=== PATIENT | male | born 1980 | race Two or more races ===

== ENCOUNTER 2021-03-02 22:08 | Inpatient (IN) ==
[2021-03-02] MEDS ORDERED: ONDANSETRON 4 MG/2 ML VIAL IV STA (22:26)
[2021-03-02] MEDS ORDERED: SODIUM CHLORIDE 0.9% 500 ML IV STA (22:26)
[2021-03-02] MEDS ORDERED: AZITHROMYCIN 250 MG TABLET PO STA (22:29)
[2021-03-02] MEDS ORDERED: DEXAMETHASONE 4 MG/1 ML VIAL IV STA (22:29)
[2021-03-02] MEDS ORDERED: DEXAMETHASONE 10 MG/1 ML VIAL ONE (23:01)
[2021-03-02 23:06] LABS: Basophils % 0.1 % (0.0-0.8); Hematocrit 43.7 VOL% (42.0-52.0); Hemoglobin 14.6 GM/DL (14.0-18.0); Immature Granulocytes % 0.8 %; Immature Granulocytes Absolute 0.06 #; Lymphocytes # 1.5 10*3/uL (1.4-4.0); Lymphocytes % 20.7 % (21.2-54.2); Mean Corpuscular HGB Conc 33.4 GM/DL (32-36); Mean Platelet Volume 9.5 FL (9.6-12.0); Monocytes % 7.2 % (1.7-12.7); Neutrophils % 71.2 % (38.7-73.9); Platelet Count 239 T/CUMM (130-400); Red Blood Count 5.14 MC/CUMM (3.8-5.5); Red Cell Distribution Width 12.5 % (9.3-17.3); White Blood Count 7.3 T/CUMM (4-12)
[2021-03-02 23:29] LABS: Albumin 3.2 G/DL (3.4-5.0); Bilirubin,Total 0.8 MG/DL (0.20-1.00); Calcium 7.8 MG/DL (8.5-10.1); Osmolality,Calculated 269.2 MOS/KG (273-304); Total Protein 7.1 G/DL (6.4-8.2)
[2021-03-03] MEDS ORDERED: hydrALAZINE 20 MG/1 ML VIAL IV PRN (02:32)
[2021-03-03] MEDS ORDERED: DEXTROSE 50% 25 GM/50 ML VIAL IV PRN (02:32)
[2021-03-03] MEDS ORDERED: GLUCAGON 1 MG VIAL IM PRN (02:32)
[2021-03-03] MEDS ORDERED: MELATONIN 3 MG TABLET PO PRN (02:32)
[2021-03-03] MEDS ORDERED: ONDANSETRON 4 MG/2 ML VIAL IV PRN (02:32)
[2021-03-03] MEDS ORDERED: SIMETHICONE CHEW 125 MG TABLET PO PRN (02:32)
[2021-03-03] MEDS ORDERED: guaiFENesin/CODEINE 5 ML LIQUID PO PRN (02:51)
[2021-03-03] MEDS ORDERED: IBUPROFEN 400 MG TABLET PO PRN (02:51)
[2021-03-03] MEDS ORDERED: BENZOCAINE/MENTHOL LOZENGE 18/BOX PO PRN (03:00)
[2021-03-03] MEDS: ENOXAPARIN 40 MG/0.4 ML SYRINGE SUBCUT SCH (03:42)
[2021-03-03] MEDS ORDERED: REMDESIVIR 200 MG in SODIUM CHLORIDE 0.9% 210 ML IV ONE (04:00)
[2021-03-03 04:04] LABS: Basophils % 0.2 % (0.0-0.8); Hematocrit 45.8 VOL% (42.0-52.0); Hemoglobin 15.1 GM/DL (14.0-18.0); Immature Granulocytes Absolute 0.06 #; Lymphocytes # 0.9 10*3/uL (1.4-4.0); Lymphocytes % 14.7 % (21.2-54.2); Mean Corpuscular Volume 85.8 FL (87-102); Mean Platelet Volume 9.4 FL (9.6-12.0); Monocytes % 4.5 % (1.7-12.7); Neutrophils % 79.6 % (38.7-73.9); Platelet Count 245 T/CUMM (130-400); Red Blood Count 5.34 MC/CUMM (3.8-5.5); Red Cell Distribution Width 12.6 % (9.3-17.3); White Blood Count 6.2 T/CUMM (4-12)
[2021-03-03 04:13] LABS: PT Patient Result 10.7 SECS (10.5-12.0)
[2021-03-03 04:38] LABS: Calcium 8.3 MG/DL (8.5-10.1); Osmolality,Calculated 270.4 MOS/KG (273-304); Potassium 4.1 MMOL/L (3.5-5.1); Risk Ratio 3.02; Thyroid Stimulating Hormone 0.213 uIU/ml (0.358-3.74); VLDL Cholesterol 40.2 MG/DL
[2021-03-03] MEDS: SODIUM CHLORIDE 0.9% 1,000 ML IV SCH ×3 (05:05→21:35)
[2021-03-03 05:11] LABS: Sedimentation Rate-Westergren 26 MM/HR (0-15)
[2021-03-03] MEDS ORDERED: CHOLECALCIFEROL 1,000 UNIT TABLET PO SCH (09:00)
[2021-03-03] MEDS ORDERED: DEXAMETHASONE 4 MG/1 ML VIAL IV SCH (09:00)
[2021-03-03] MEDS ORDERED: ZINC GLUCONATE 50 MG TABLET PO SCH (09:00)
[2021-03-03] MEDS: DOCUSATE SODIUM 100 MG CAPSULE PO SCH ×2 (09:18→21:35)
[2021-03-03] MEDS: BENZONATATE 100 MG CAPSULE PO SCH ×2 (09:19→21:34)
[2021-03-03] MEDS: PANTOPRAZOLE 40 MG TABLET PO SCH (09:19)
[2021-03-03] MEDS: ASCORBIC ACID 500 MG TABLET PO SCH ×2 (09:19→21:35)
[2021-03-03] MEDS ORDERED: AZITHROMYCIN 250 MG TABLET ONE (10:47)
[2021-03-03] MEDS: FAMOTIDINE 20 MG/2 ML VIAL IV SCH (17:36)
[2021-03-03] MEDS: IVERMECTIN 3 MG TABLET PO SCH (18:36)
[2021-03-03] MEDS: methylPREDNISolone SOD SUC 40 MG/1 ML VIAL IV SCH ×2 (18:36→23:54)
[2021-03-03 19:12] LABS: Hepatitis B Core IgM Quant 0.07 Index; Hepatitis B Surface Ag Quant < 0.10 Index; Hepatitis B Surface Ag Result Non-Reactive (NonReactive); Hepatitis C Virus Ab Quant 0.05 Index; Hepatitis C Virus Ab Result Non-Reactive (NonReactive)
[2021-03-03] MEDS: MELATONIN 3 MG TABLET PO SCH (21:34)
[2021-03-03] MEDS: CHOLECALCIFEROL 5,000 UNIT TABLET PO SCH (21:35)
[2021-03-04] MEDS: ENOXAPARIN 40 MG/0.4 ML SYRINGE SUBCUT SCH (03:23)
[2021-03-04 04:18] LABS: Basophils % 0.2 % (0.0-0.8); Hematocrit 45.9 VOL% (42.0-52.0); Hemoglobin 14.7 GM/DL (14.0-18.0); Immature Granulocytes % 0.6 %; Immature Granulocytes Absolute 0.04 #; Lymphocytes % 15.6 % (21.2-54.2); Mean Corpuscular Volume 88.3 FL (87-102); Mean Platelet Volume 9.6 FL (9.6-12.0); Monocytes % 5.6 % (1.7-12.7); Platelet Count 258 T/CUMM (130-400); Red Cell Distribution Width 12.7 % (9.3-17.3); White Blood Count 6.4 T/CUMM (4-12)
[2021-03-04 04:45] LABS: Albumin 2.6 G/DL (3.4-5.0); Bilirubin,Total 0.5 MG/DL (0.20-1.00); Calcium 8.1 MG/DL (8.5-10.1); Ferritin 4331.5 ng/mL (26-388); Osmolality,Calculated 276.2 MOS/KG (273-304); Total Protein 6.9 G/DL (6.4-8.2)
[2021-03-04] MEDS: SODIUM CHLORIDE 0.9% 1,000 ML IV SCH ×2 (05:42→15:16)
[2021-03-04] MEDS: FAMOTIDINE 20 MG/2 ML VIAL IV SCH ×2 (05:47→16:37)
[2021-03-04] MEDS: methylPREDNISolone SOD SUC 40 MG/1 ML VIAL IV SCH ×4 (05:50→23:55)
[2021-03-04] MEDS ORDERED: REMDESIVIR 100 MG in SODIUM CHLORIDE 0.9% 100 ML IV SCH (09:00)
[2021-03-04] MEDS: CHOLECALCIFEROL 5,000 UNIT TABLET PO SCH ×2 (09:15→21:23)
[2021-03-04] MEDS: PANTOPRAZOLE 40 MG TABLET PO SCH (09:15)
[2021-03-04] MEDS: ZINC GLUCONATE 50 MG TABLET PO SCH (09:15)
[2021-03-04] MEDS: DOCUSATE SODIUM 100 MG CAPSULE PO SCH ×2 (09:15→21:23)
[2021-03-04] MEDS: ASCORBIC ACID 500 MG TABLET PO SCH ×2 (09:15→21:23)
[2021-03-04] MEDS: BENZONATATE 100 MG CAPSULE PO SCH ×2 (09:15→21:23)
[2021-03-04] MEDS: AZITHROMYCIN 250 MG TABLET PO SCH (09:15)
[2021-03-04] MEDS: CETIRIZINE 10 MG TABLET PO SCH (09:15)
[2021-03-04] MEDS: IVERMECTIN 3 MG TABLET PO SCH (09:15)
[2021-03-04] MEDS: BARICITINIB 2 MG TABLET PO SCH (15:27)
[2021-03-04] MEDS: MELATONIN 3 MG TABLET PO SCH (21:23)
[2021-03-05] MEDS: SODIUM CHLORIDE 0.9% 1,000 ML IV SCH ×3 (00:02→13:34)
[2021-03-05] MEDS: ENOXAPARIN 40 MG/0.4 ML SYRINGE SUBCUT SCH ×2 (03:30→17:06)
[2021-03-05] MEDS: FAMOTIDINE 20 MG/2 ML VIAL IV SCH ×2 (05:46→17:07)
[2021-03-05] MEDS: methylPREDNISolone SOD SUC 40 MG/1 ML VIAL IV SCH ×4 (05:50→23:15)
[2021-03-05] MEDS: BENZONATATE 100 MG CAPSULE PO SCH ×2 (08:14→20:30)
[2021-03-05] MEDS: ZINC GLUCONATE 50 MG TABLET PO SCH (08:14)
[2021-03-05] MEDS: AZITHROMYCIN 250 MG TABLET PO SCH (08:15)
[2021-03-05] MEDS: ASCORBIC ACID 500 MG TABLET PO SCH ×2 (08:15→20:30)
[2021-03-05] MEDS: DOCUSATE SODIUM 100 MG CAPSULE PO SCH ×2 (08:15→20:30)
[2021-03-05] MEDS: PANTOPRAZOLE 40 MG TABLET PO SCH (08:15)
[2021-03-05] MEDS: CHOLECALCIFEROL 5,000 UNIT TABLET PO SCH ×2 (08:16→20:30)
[2021-03-05] MEDS: CETIRIZINE 10 MG TABLET PO SCH (08:16)
[2021-03-05] MEDS: BARICITINIB 2 MG TABLET PO SCH (10:33)
[2021-03-05] MEDS: IVERMECTIN 3 MG TABLET PO SCH (10:33)
[2021-03-05] MEDS ORDERED: FUROSEMIDE 40 MG/4 ML VIAL IV ONE (15:00)
[2021-03-05] MEDS: MELATONIN 3 MG TABLET PO SCH (20:30)
[2021-03-06 04:34] VITALS: BP 119/78
[2021-03-06] MEDS: FAMOTIDINE 20 MG/2 ML VIAL IV SCH (05:30)
[2021-03-06] MEDS: methylPREDNISolone SOD SUC 40 MG/1 ML VIAL IV SCH ×2 (05:32→12:55)
[2021-03-06] MEDS: ENOXAPARIN 40 MG/0.4 ML SYRINGE SUBCUT SCH (05:40)
[2021-03-06 06:07] LABS: Basophils % 0.2 % (0.0-0.8); Hematocrit 46.4 VOL% (42.0-52.0); Hemoglobin 15.4 GM/DL (14.0-18.0); Immature Granulocytes % 1.9 %; Immature Granulocytes Absolute 0.16 #; Lymphocytes % 11.8 % (21.2-54.2); Mean Corpuscular HGB Conc 33.2 GM/DL (32-36); Mean Corpuscular Volume 84.5 FL (87-102); Mean Platelet Volume 9.8 FL (9.6-12.0); Monocytes % 5.5 % (1.7-12.7); Neutrophils % 80.6 % (38.7-73.9); Platelet Count 374 T/CUMM (130-400); Red Blood Count 5.49 MC/CUMM (3.8-5.5); Red Cell Distribution Width 12.4 % (9.3-17.3); White Blood Count 8.4 T/CUMM (4-12)
[2021-03-06 06:33] LABS: Calcium 8.3 MG/DL (8.5-10.1); Ferritin 1859.1 ng/mL (26-388)
[2021-03-06] MEDS ORDERED: FUROSEMIDE 40 MG/4 ML VIAL IV ONE (07:51)
[2021-03-06] MEDS: PANTOPRAZOLE 40 MG TABLET PO SCH (08:35)
[2021-03-06] MEDS: BENZONATATE 100 MG CAPSULE PO SCH (08:37)
[2021-03-06] MEDS: BARICITINIB 2 MG TABLET PO SCH (08:38)
[2021-03-06] MEDS: CETIRIZINE 10 MG TABLET PO SCH (08:38)
[2021-03-06] MEDS: ZINC GLUCONATE 50 MG TABLET PO SCH (08:38)
[2021-03-06] MEDS: IVERMECTIN 3 MG TABLET PO SCH (08:38)
[2021-03-06] MEDS: ASCORBIC ACID 500 MG TABLET PO SCH (08:39)
[2021-03-06] MEDS: CHOLECALCIFEROL 5,000 UNIT TABLET PO SCH (08:39)
[2021-03-06] MEDS: AZITHROMYCIN 250 MG TABLET PO SCH (08:39)
[2021-03-06] MEDS: DOCUSATE SODIUM 100 MG CAPSULE PO SCH (08:39)
== END 2021-03-06 13:18 | disposition home or self-care (01) | DRG 177 ==
LOC: EDBD → EDUNIT# → N.ED 22:08 → N.EDINP 03-03 02:32 → SUATTDRO 03-03 02:32 → N.CC 03-04 15:19
PROVIDERS: ADMIT Internal Medicine; ATTEND Internal Medicine